=== PATIENT | female | born 1970 | race Caucasian/White ===

== ENCOUNTER → 2021-01-11 | Outpatient (CLI) | payer OTHER ==
[~2021-01-11] MED LIST: CLEOCIN HCL300 MG PO; FLAGYL500 MG PO; GUAIFEN-PSE 6001 TER PO; IBU800 M1 PO; LORTAB 5/500 501 TAB PO; NO HOME MEDICATIONS; NORCO 325 MG-51 TAB PO; NORCO 325 MG-7.1 TAB PO
== END ==
LOC: MC.RAD 13:33
DX: N64.89 Other specified disorders of breast (principal)